=== PATIENT | male | born 1990 | race Caucasian/White ===

== ENCOUNTER 2024-12-19 13:52 | Emergency (ER) | payer SELFPAY ==
[2024-12-19 13:54] VITALS: BP 142/90
--- NOTE | 2024-12-19 14:24 | ED.GENMED ---
History of Present Illness
General
Chief Complaint: Skin Surface Trauma
Source: patient
Exam Limitations: none
Time Seen by Provider: 12/19/24 14:09
History of Present Illness
History of Present Illness:
34-year-old otherwise healthy male presents with laceration to right eyebrow he sustained today. 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 No loss conscious. He denies
headache or vision change. Last tetanus is within 5 years. No other complaints at this time.
Past History
Past History
ED Past Medical History: None
ED Past Surgical History: None
Social History
Tobacco: Non-smoker
Alcohol: None
Drug: None
Living: with family
Employment: Employed
Phy Exam
Physical Exam
Physical Exam:
General: Well-appearing male no acute respiratory distress
HEENT: Normocephalic half a centimeter vertically oriented laceration medial aspect right eyebrow. Not currently bleeding. Edges approximate nicely on their own but does open up with tension. Pupils equal round reactive to light
Neurologic exam: Normal gait conversing appropriately.
Course
Vital Signs
Initial and Last Documented VS:
Initial Vital Signs
Temp Pulse Resp BP Pulse Ox
98.2 F 77 16 142/90 99
12/19/24 13:54 12/19/24 13:54 12/19/24 13:54 12/19/24 13:54 12/19/24 13:54
Last Documented Vital Signs
Temp Pulse Resp BP Pulse Ox
98.2 F 77 16 142/90 99
12/19/24 13:54 12/19/24 13:54 12/19/24 13:54 12/19/24 13:54 12/19/24 13:54
MDM/Problems Addressed
Differential Diagnosis Includes:
Laceration right medial eyebrow. No concerning findings for intracranial injury.
The wound was irrigated with saline dried and held in approximation with skin adhesive. Patient tolerated this well. Wound care instructions were given. Stable for discharge
*Critical Care Note
Total Time (30-74mins, 75-104mins- exclusive of procedures): Not Applicable
ED Attending Note
-
Portions of this chart may have been created with voice recognition software.� Occasional wrong word or��sound alike� substitutions may have occurred due to the inherent limitations of voice recognition software.
Discharge Plan
Departure
Patient Disposition: Home (Routine Discharge)
Date of Disposition: 12/19/24
Time of Disposition: 14:26
Patient with high blood pressure during this ER visit?: No
Discharge Problem:
Laceration
Instructions: Laceration Repair With Glue (DC)
Activity Restrictions/Additional Instructions:
Keep clean and dry. The glue should dissolve on its own. Return here if worse otherwise follow-up with your doctor
Interventions
Interventions:
*Risk Screen - Suicide Last Done: 12/19/24 13:54
*General Assessment Last Done: 12/19/24 13:54
*Neglect/Abuse Screening Last Done: 12/19/24 13:54
*ED COVID-19 Vaccine History Last Done: 12/19/24 13:54
Discharge Date and Time
Print Language: NIGERIAN
== END 2024-12-19 14:48 | disposition home or self-care (01) ==
LOC: EMR 13:52
PROVIDERS: EMERGENCY PHYSICIAN Student in an Organized Health Care Education/Training Program; FAMILY PHYSICIAN Nurse Practitioner Family
DX: S01.111A Laceration without foreign body of right eyelid and periocular area, initial encounter (principal); W22.8XXA Striking against or struck by other objects, initial encounter; Y99.0 Civilian activity done for income or pay
CPT/HCPCS: 12011; 99282